=== PATIENT | male | born 1980 | race Caucasian/White ===

== ENCOUNTER 2019-03-19 07:41 | Emergency (ER) | payer OTHER ==
[2019-03-19] MEDS ORDERED: Ketorolac 30 MG/ML SDV IVPUSH ONE (08:03)
--- NOTE | 2019-03-19 08:10 | EDM.PDOC ---
ED HPI GENERAL MEDICAL PROBLEM - General Chief Complaint: Flank Pain Stated Complaint: PAIN ON LEFT SIDE Time Seen by Provider: 03/19/19 08:00 Source of Information: Reports: Patient, Family History Limitations: Reports: No Limitations - History of Present Illness INITIAL COMMENTS - FREE TEXT/NARRATIVE: 38-year-old male with serious left flank pain for the past 3 hours. Onset: Sudden Associated Symptoms: Reports: Diaphoresis, Nausea/Vomiting Left Flank Pain Score (Numeric/FACES): 8 - Related Data Allergies Allergy/AdvReac Type Severity Reaction Status Date / Time No Known Allergies Allergy Verified 03/19/19 07:57 Home Meds: Home Meds Ibuprofen 800 mg PO TID PRN 01/14/15 [History] Past Medical History Musculoskeletal History: Reports: Fracture Other Musculoskeletal History: colar bone - Infectious Disease History Infectious Disease History: Reports: Chicken Pox ED ROS GENERAL - Review of Systems Review Of Systems: See Below Constitutional: Denies: Fever, Chills HEENT: Reports: No Symptoms Respiratory: Denies: Shortness of Breath Cardiovascular: Denies: Chest Pain GI/Abdominal: Reports: Abdominal Pain (Left abdomen left flank) : Reports: Urgency (Some sense of urgency to urinate) Skin: Reports: Pallor, Diaphoresis Neurological: Reports: No Symptoms ED EXAM, GENERAL - Physical Exam Exam: See Below Exam Limited By: No Limitations General Appearance: Alert, Moderate Distress (. Uncomfortable) Head: Atraumatic Respiratory/Chest: No Respiratory Distress Cardiovascular: Regular Rate, Rhythm GI/Abdominal: Non-Tender Extremities: Normal Inspection Neurological: Alert Psychiatric: Anxious Skin Exam: Diaphoretic (Initially somewhat diaphoretic) Course - Vital Signs Last Recorded V/S: Last Vital Signs Temp 94.9 F L 03/19/19 08:14 Pulse 51 L 03/19/19 08:14 Resp 20 03/19/19 08:14 BP 169/81 H 03/19/19 08:14 Pulse Ox 98 03/19/19 08:14 - Orders/Labs/Meds Meds: Medications Discontinued Medications Generic Name Dose Route Start Last Admin Trade Name Freq PRN Reason Stop Dose Admin Ketorolac Tromethamine 30 mg 03/19/19 08:03 03/19/19 08:10 Toradol IVPUSH 03/19/19 08:04 30 mg ONETIME ONE Administration - Re-Assessments/Exams Free Text/Narrative Re-Assessment/Exam: 03/19/19 08:32 An IV was started and the patient was given 30 mg of IV Toradol and sent to the CT scan of the abdomen and pelvis without contrast. His symptoms resolved by the time he came back from CT, and there was an isolated renal stone flank dependent in the bladder. There was some hydronephrosis of the left side indicating a recent stone. 03/19/19 08:54 Patient remained comfortable while in the emergency room after returning from the CT scan. He'll be discharged with information on kidney stones and instructed to stay hydrated and return if symptoms recur. Departure - Departure Time of Disposition: 09:04 Disposition: Home, Self-Care 01 Condition: Good Clinical Impression: Ureteric colic, Left nephrolithiasis - Discharge Information Instructions: Kidney Stones, [id number] Referrals: PCP,None [Primary Care Provider] - Forms: ED Department Discharge Care Plan Goals: Stay hydrated, return if symptoms recur otherwise increase activity as tolerated.
[2019-03-19 08:14] VITALS: BP 169/81; PULSE 51
--- NOTE | 2019-03-19 09:13 | CRLCT ---
INDICATION: Left flank pain. COMPARISON: None. TECHNIQUE: CT abdomen and pelvis without intravenous or oral contrast; coronal and sagittal reformats. FINDINGS: Moderate left-sided hydronephrosis and hydroureter. No stone identified in the course of the left ureter. A 5 mm stone identified in the dependent portion of the urinary bladder slice 178 series 2. It is possible the patient just passed a stone into the bladder. No kidney stones on either side. No obstructive uropathy or perinephric pathology on the right side. No abnormal intra pulmonary nodular densities through the lung bases. No evidence of pleural effusion. Normal size cardiac silhouette without any evidence of pericardial effusion. Cyst identified in segment 4 of the liver. No focal hepatic or splenic pathology. No pancreatic pathology. Cholelithiasis. No adrenal pathology. No retroperitoneal lymphadenopathy. No evidence of abdominal or pelvic ascites. Normal appendix. CT of the pelvis is unremarkable. IMPRESSION: 1. moderate left-sided hydronephrosis and hydroureter. 2. A 5 mm stone identified in the dependent portion of the urinary bladder; patient probably passed a stone recently into the bladder. 3. Cyst segment 4 of the liver. 4. Negative CT abdomen and pelvis without intravenous or oral contrast otherwise. Please note that all CT scans at this facility use dose modulation, iterative reconstruction, and/or weight-based dosing when appropriate to reduce radiation dose to as low as reasonably achievable. Dictated by Victor Manuel Mccartney MD @ Mar 19 2019 9:07AM Signed by Dr. Victor Manuel Mccartney @ Mar 19 2019 9:12AM
== END 2019-03-19 09:04 | disposition home or self-care (01) ==
LOC: JP.ED 07:41
DX: N13.2 Hydronephrosis with renal and ureteral calculous obstruction (principal); Z79.899 Other long term (current) drug therapy
CPT/HCPCS: 74176; 96374; 99284; J1885; 99283

== ENCOUNTER 2023-01-15 11:46 | Emergency (ER) | payer MEDICAID ==
[2023-01-15 13:21] VITALS: BP 139/94; PULSE 78
[2023-01-15] MEDS ORDERED: Lidocaine 1% 5 ML VIAL INJECT ONE (13:53)
[2023-01-15] MEDS ORDERED: Bacitracin Oint 1 GM U/D Packet TOP ONE (13:53)
[2023-01-15] MEDS ORDERED: Ketorolac 30 MG/ML SDV IM ONE (13:53)
[2023-01-15] MEDS ORDERED: Diphtheria,Pertussis(Acell),Tetanus Vaccine 0.5 ML Syringe IM ONE (13:53)
== END 2023-01-15 15:25 | disposition home or self-care (01) ==
LOC: JP.ED 11:46
DX: S51.851A Open bite of right forearm, initial encounter (principal); I10 Essential (primary) hypertension; Z87.891 Personal history of nicotine dependence; Z79.899 Other long term (current) drug therapy; W54.0XXA Bitten by dog, initial encounter
CPT/HCPCS: 12002; 73090; 73130; 90471; 90715; 96372; 99283; J1885

== ENCOUNTER 2024-09-23 09:34 | Emergency (ER) | payer MEDICAID, OTHER ==
[2024-09-23] MEDS: fentaNYL 100 MCG/2 ML SDV IVPUSH ONE (10:21)
[2024-09-23] MEDS: Ondansetron 4 MG/2 ML SDV IVPUSH ONE (10:22)
[2024-09-23] MEDS: Sodium Chloride 0.9% 1,000 ML IV STA (10:25)
[2024-09-23] MEDS: Sodium Chloride 0.9% 10 ML Syringe FLUSH PRN (10:25)
[2024-09-23 10:27] LABS: BASOPHILS ABSOLUTE AUTO 0.12 K/uL (0.00-0.10); BASOPHILS PERCENT AUTO 1.1 % (0.1-1.3); EOSINOPHILS ABSOLUTE AUTO 0.22 K/uL (0.00-0.40); EOSINOPHILS PERCENT AUTO 2.1 % (0.0-5.4); HEMATOCRIT 45.9 % (38.4-49.7); HEMOGLOBIN 16.4 g/dL (12.9-16.9); IMMATURE GRAN ABSOLUTE AUTO 0.07 K/uL (0.00-0.23); IMMATURE GRAN PERCENT AUTO 0.7 % (0.0-0.7); LYMPHOCYTES ABSOLUTE AUTO 4.13 K/uL (0.8-3.3); LYMPHOCYTES PERCENT AUTO 38.5 % (11.4-47.7); MEAN CORPUSCULAR HEMOGLOBIN 30.9 pg (31.6-35.5); MEAN CORPUSCULAR HGB CONC 35.7 g/dL (31.6-35.5); MEAN CORPUSCULAR VOLUME 86.4 fL (81.4-99.0); MONOCYTES ABSOLUTE AUTO 0.53 K/uL (0.20-0.90); MONOCYTES PERCENT AUTO 4.9 % (3.3-12.6); NEUTROPHILS ABSOLUTE AUTO 5.66 K/uL (1.0-7.6); NEUTROPHILS PERCENT AUTO 52.7 % (40.0-78.1); PLATELET COUNT,PLT 241 K/uL (130-375); RED BLOOD CELL COUNT 5.31 M/uL (4.14-5.76); WHITE BLOOD CELL COUNT,WBC 10.7 K/uL (3.2-11.0)
[2024-09-23] MEDS: Sodium Chloride 0.9% 10 ML Syringe FLUSH ONE (10:44)
[2024-09-23] MEDS: Iopamidol 612 MG/ML 100 ML Bottle IV ONE (10:44)
[2024-09-23] MEDS: Sodium Chloride 0.9% 80 ML IV ONE (10:44)
[2024-09-23 10:48] LABS: ALANINE AMINOTRANSFERASE,ALT 113 U/L (12-78); ALBUMIN 4.1 g/dL (3.4-5.0); ALKALINE PHOSPHATASE 71 U/L (46-116); ASPARTATE AMNIOTRANSFERASE,AST 93 U/L (15-37); BILIRUBIN TOTAL 0.6 mg/dL (0.2-1.0); BLOOD UREA NITROGEN,BUN 13 mg/dL (7-18); CALCIUM 8.9 mg/dL (8.5-10.1); CARBON DIOXIDE,CO2 27 mmol/L (21-32); CHLORIDE,CL 101 mmol/L (100-108); CREATININE 1.3 mg/dL (0.8-1.3); ESTIMATED GFR 70 mL/min (>60); GLUCOSE RANDOM 120 mg/dL (74-106); POTASSIUM,K 3.3 mmol/L (3.6-5.2); PROTEIN TOTAL,TP 8.1 g/dL (6.4-8.2); SODIUM,NA 140 mmol/L (140-148)
[2024-09-23 10:49] LABS: ANION GAP 15.3 mmol/L (5.0-14.0)
[2024-09-23 11:50] LABS: APPEARANCE,URINE SLIGHTLY CLOUDY (CLEAR); BILIRUBIN,URINE NEGATIVE (NEGATIVE); COLOR,URINE YELLOW (YELLOW); GLUCOSE,URINE NEGATIVE (NEGATIVE); KETONES,URINE NEGATIVE (NEGATIVE); LEUKOCYTE ESTERASE,URINE NEGATIVE (NEGATIVE); NITRITE,URINE NEGATIVE (NEGATIVE); OCCULT BLOOD,URINE NEGATIVE (NEGATIVE); PH,URINE 7.5 (5.0-8.0); PROTEIN,URINE NEGATIVE (NEGATIVE)
[2024-09-23 12:05] LABS: AMORPHOUS SEDIMENT,URINE MANY; BACTERIA,URINE RARE; EPITHELIAL CELLS,URINE NOT SEEN; MUCUS,URINE NOT SEEN; RBC,URINE 0-5 (0-5); WBC,URINE 0-5 (0-5)
[2024-09-23 12:31] VITALS: BP 134/89; PULSE 75
== END 2024-09-23 12:45 ==
LOC: JP.ED 09:34
DX: K80.70 Calculus of gallbladder and bile duct without cholecystitis without obstruction (principal); I10 Essential (primary) hypertension; Z87.891 Personal history of nicotine dependence
CPT/HCPCS: 36415; 74177; 74177-26; 80053; 81001; 83605; 83690; 85025; 96361; 96374; 96375; 99284; 99284-25; J2405; J3010; J7030; J7040; Q9967

== ENCOUNTER 2024-10-01 06:22 | Day surgery (SDC) | payer SELFPAY ==
[2024-10-01] MEDS ORDERED: Glycopyrrolate 0.2 MG/ML 5 ML MDV ONE (07:10)
[2024-10-01] MEDS ORDERED: Ondansetron 4 MG/2 ML SDV ONE (07:10)
[2024-10-01] MEDS ORDERED: Succinylcholine 200 MG/10 ML MDV ONE (07:10)
[2024-10-01] MEDS ORDERED: Propofol 200 MG/20 ML SDV ONE (07:10)
[2024-10-01] MEDS ORDERED: Neostigmine Methylsulfate 10 MG/10 ML MDV ONE (07:10)
[2024-10-01] MEDS ORDERED: Rocuronium 50 MG/5 ML Vial ONE (07:10)
[2024-10-01] MEDS ORDERED: fentaNYL 250 MCG/5 ML SDV ONE (07:10)
[2024-10-01] MEDS ORDERED: Dexamethasone 4 MG/ML SDV ONE (07:10)
[2024-10-01 07:24] LABS: HEMATOCRIT 42.3 % (38.4-49.7); HEMOGLOBIN 14.5 g/dL (12.9-16.9); MEAN CORPUSCULAR HEMOGLOBIN 30.3 pg (31.6-35.5); MEAN CORPUSCULAR HGB CONC 34.3 g/dL (31.6-35.5); MEAN CORPUSCULAR VOLUME 88.3 fL (81.4-99.0); RED BLOOD CELL COUNT 4.79 M/uL (4.14-5.76); WHITE BLOOD CELL COUNT,WBC 8.2 K/uL (3.2-11.0)
[2024-10-01] MEDS: Lactated Ringers 1,000 ML IV SCH (07:27)
[2024-10-01 07:44] LABS: ALANINE AMINOTRANSFERASE,ALT 132 U/L (12-78); ALBUMIN 3.6 g/dL (3.4-5.0); ALKALINE PHOSPHATASE 78 U/L (46-116); ASPARTATE AMNIOTRANSFERASE,AST 42 U/L (15-37); BILIRUBIN TOTAL 0.7 mg/dL (0.2-1.0); BLOOD UREA NITROGEN,BUN 18 mg/dL (7-18); CALCIUM 8.5 mg/dL (8.5-10.1); CARBON DIOXIDE,CO2 28 mmol/L (21-32); CHLORIDE,CL 104 mmol/L (100-108); CREATININE 1.2 mg/dL (0.8-1.3); EST CRCL DRUG DOSING (CG) 74.21 mL/min; ESTIMATED GFR 77 mL/min (>60); GLUCOSE RANDOM 96 mg/dL (74-106); PROTEIN TOTAL,TP 7.3 g/dL (6.4-8.2); SODIUM,NA 139 mmol/L (140-148)
[2024-10-01] MEDS ORDERED: ceFAZolin 2 GM in Sodium Chloride 0.9% 50 ML IV ONE (07:45)
[2024-10-01] MEDS: ceFAZolin 2 GM in Premix Bag 1 BAG IV ONE (07:50)
[2024-10-01] MEDS ORDERED: Sodium Chloride 0.9% 10 ML ONE (08:16)
[2024-10-01] MEDS ORDERED: ePHEDrine 50 MG/ML SDV ONE (08:16)
[2024-10-01] MEDS: Bupivacaine 0.25%/EPINEPHrine 1:200,000 30 ML SDV ONE (08:26)
[2024-10-01] MEDS ORDERED: Lactated Ringers 1,000 ML ONE (08:41)
[2024-10-01] MEDS ORDERED: Sugammadex Sodium 200 MG/2 ML VIAL IV ONE (08:54)
[2024-10-01] MEDS: oxyCODONE 5 MG Tab PO ONE (10:37)
[2024-10-01 10:40] VITALS: BP 105/72; PULSE 80
== END 2024-10-01 11:40 | disposition home or self-care (01) ==
LOC: JP.SDS 06:22
PROVIDERS: ATTEND Surgery
DX: K80.10 Calculus of gallbladder with chronic cholecystitis without obstruction (principal); I10 Essential (primary) hypertension; Z87.891 Personal history of nicotine dependence
CPT/HCPCS: 00790-QZ; 36415; 80053; 85027; 88304; A9270-GY; J0330; J0690; J1100; J1596; J2405; J2704; J2710; J3010; J3490; J7120

== ENCOUNTER 2024-10-02 09:33 | Emergency (ER) | payer SELFPAY ==
[2024-10-02] MEDS: Sodium Chloride 0.9% 1,000 ML IV ONE (09:49)
[2024-10-02] MEDS: Ondansetron 4 MG/2 ML SDV IVPUSH ONE ×2 (09:49→10:32)
[2024-10-02 09:50] LABS: HEMATOCRIT 44.4 % (38.4-49.7); HEMOGLOBIN 15.3 g/dL (12.9-16.9); MEAN CORPUSCULAR HEMOGLOBIN 30.7 pg (31.6-35.5); MEAN CORPUSCULAR HGB CONC 34.5 g/dL (31.6-35.5); MEAN CORPUSCULAR VOLUME 89.2 fL (81.4-99.0); PLATELET COUNT,PLT 350 K/uL (130-375); RED BLOOD CELL COUNT 4.98 M/uL (4.14-5.76); WHITE BLOOD CELL COUNT,WBC 14.2 K/uL (3.2-11.0)
[2024-10-02] MEDS: HYDROmorphone 1 MG/ML Syringe IVPUSH ONE ×2 (09:50→10:34)
[2024-10-02] MEDS: HYDROmorphone 0.5 MG/0.5 ML Syringe IVPUSH ONE ×2 (09:53→11:50)
[2024-10-02 10:12] LABS: ALANINE AMINOTRANSFERASE,ALT 171 U/L (12-78); ALBUMIN 4.1 g/dL (3.4-5.0); ALKALINE PHOSPHATASE 89 U/L (46-116); ASPARTATE AMNIOTRANSFERASE,AST 78 U/L (15-37); BILIRUBIN TOTAL 0.6 mg/dL (0.2-1.0); BLOOD UREA NITROGEN,BUN 11 mg/dL (7-18); CARBON DIOXIDE,CO2 29 mmol/L (21-32); CHLORIDE,CL 102 mmol/L (100-108); CREATININE 1.4 mg/dL (0.8-1.3); EST CRCL DRUG DOSING (CG) 63.61 mL/min; ESTIMATED GFR 64 mL/min (>60); GLUCOSE RANDOM 127 mg/dL (74-106); POTASSIUM,K 3.1 mmol/L (3.6-5.2); PROTEIN TOTAL,TP 8.1 g/dL (6.4-8.2); SODIUM,NA 140 mmol/L (140-148)
[2024-10-02] MEDS ORDERED: Sodium Chloride 0.9% 80 ML IV SCH (10:15)
[2024-10-02] MEDS: Iopamidol 612 MG/ML 100 ML Bottle IV PRN (10:15)
[2024-10-02 10:16] LABS: ANION GAP 12.1 mmol/L (5.0-14.0)
[2024-10-02] MEDS: Sodium Chloride 0.9% 10 ML Syringe FLUSH ONE (10:16)
[2024-10-02 10:28] LABS: EOSINOPHILS ABSOLUTE MAN 0.14 K/uL (0.00-0.40); EOSINOPHILS PERCENT MAN 1 % (2-4); LYMPHOCYTES ABSOLUTE MAN 5.68 K/uL (0.8-3.3); LYMPHOCYTES PERCENT MAN 40 % (24-44); MONOCYTES ABSOLUTE MAN 0.57 K/uL (0.20-0.90); MONOCYTES PERCENT MAN 4 % (2-6); NEUTROPHILS ABSOLUTE MAN 7.81 K/uL (1.0-7.6); SEG NEUTROPHILS PERCENT MAN 55 % (36-66)
[2024-10-02 10:29] LABS: ATYPICAL LYMPHOCYTES RARE
[2024-10-02] MEDS: Piperacillin/Tazobactam/Dext 4.5 GM in Premix Bag 1 BAG IV ONE (10:58)
[2024-10-02] MEDS: Piperacillin/Tazobactam 4.5 GM in Sodium Chloride 0.9% 100 ML IV ONE (10:59)
[2024-10-02] MEDS: oxyCODONE 5 MG Tab PO ONE (11:50)
[2024-10-02 13:56] VITALS: BP 126/84; PULSE 70
== END 2024-10-02 13:55 | disposition home or self-care (01) ==
LOC: JP.ED 09:33
DX: G89.18 Other acute postprocedural pain (principal); R10.11 Right upper quadrant pain; R94.5 Abnormal results of liver function studies; I10 Essential (primary) hypertension; Z90.49 Acquired absence of other specified parts of digestive tract
CPT/HCPCS: 36415; 74177; 80053; 83605; 83690; 85025; 96361; 96365; 96375; 96376; 99284; A9270; J1171; J2405; J2543; J7030; Q9967